=== PATIENT | female | born 1965 | race Caucasian/White ===

== ENCOUNTER 2020-07-23 03:56 | Emergency (ER) | payer OTHER ==
[2020-07-23] MEDS ORDERED: Acetaminophen 500 MG TAB ONE (04:14)
[2020-07-23] MEDS ORDERED: PROPOFOL 20 ML ONE (05:15)
[2020-07-23] MEDS ORDERED: Morphine 4 MG/ML VIAL ONE (05:46)
[2020-07-23] MEDS ORDERED: Ondansetron PF 4 MG/2 ML Vial ONE (05:46)
--- NOTE | 2020-07-23 08:12 | RAD ---
XR Tib Fib Rt Leg 2 View History: Injury. Comparison: None. Findings: Similar appearance of the distal fibular diaphyseal fracture with syndesmosis. Transversely oriented medial malleolar fracture is similar. Lateral talar shift is similar. Impression: Similar appearance of the Dang C fracture with lateral talar shift.
--- NOTE | 2020-07-23 09:02 | RAD ---
Exam: XR Ankle Rt 3 View STANDARD HISTORY: Right ankle pain and swelling. COMPARISON: None FINDINGS: There is a mildly comminuted fracture involving the distal diaphysis of the fibula with mild separati on and slight medial angulation of fracture fragments. There is a fracture involving the medial malleolus. The talus and medial malleolus fracture fragment are displaced laterally with respect to t he distal tibia by approximately 8 mm. Subcutaneous edema is seen about the ankle. IMPRESSION: 1. Comminuted fracture distal fibula with mild angulation. 2. Fracture medial malleolus with mild dislocation at the tibiotalar joint. 3. Subcutaneous edema.
--- NOTE | 2020-07-23 09:04 | RAD ---
Exam: XR Tib Fib Rt Leg 2 View HISTORY: Tripped over shower curtain. Patient has right ankle pain and swelling. COMPARISON: Views right ankle on this date. FINDINGS: As noted on views of the ankle, there is a comminuted fracture involving the right distal fibular elsa physis with separation of fracture fragments. Fracture of the medial malleolus is present with dislocation at the tibiotalar joint with the talus and medial malleolar fracture fragment displaced l aterally. No additional fracture or dislocation is seen involving the right tibia or fibula. Subcutaneous edema is seen about the ankle. IMPRESSION: Fractures involving the distal right fibular diaphysis and medial malleolus with dislocation at the t ibiotalar joint.
== END 2020-07-23 06:20 | disposition home or self-care (01) ==
LOC: ERS 03:56
DX: S82.851A Displaced trimalleolar fracture of right lower leg, initial encounter for closed fracture (principal); E03.9 Hypothyroidism, unspecified; M81.0 Age-related osteoporosis without current pathological fracture; Z85.3 Personal history of malignant neoplasm of breast; Z79.84 Long term (current) use of oral hypoglycemic drugs; Z79.899 Other long term (current) drug therapy; W19.XXXA Unspecified fall, initial encounter
CPT/HCPCS: 27818; 96374; 96375; 99152; J2270; J2405; J2704